=== PATIENT | male | born 1955 | race Caucasian/White ===

== ENCOUNTER → 2025-01-17 12:13 | Outpatient (REF) | payer MEDICARE, SELFPAY | LOC: HWRAD 12:13 | PROVIDERS: ATTENDING PHYSICIAN Podiatrist Foot & Ankle Surgery; FAMILY PHYSICIAN Internal Medicine | DX: M79.2 Neuralgia and neuritis, unspecified (principal) | CPT/HCPCS: 73610; 73630 ==